=== PATIENT | female | born 1965 | race Caucasian/White ===

== ENCOUNTER → 2016-09-26 | Outpatient (CLI) | payer BC, OTHER ==
[2016-09-26 13:16] LABS: BASO % 0.2 %; BASO ABS # 0.02 K/uL (0-0.2); COMPLETE YES; EOS % 1.3 %; HEMATOCRIT 49.3 % (37-47); IG% 0.5 %; LYMPH % 34.1 %; LYMPH ABS # 4.27 K/uL (1.2-3.4); MEAN CELL VOLUME 89.2 fL (80-100); MEAN CORPUSCULAR HEMOGLOBIN 28.6 pg (25-34); MEAN PLATELET VOLUME 11.3 fL (7.4-10.4); MONO % 5.5 %; NEUT % 58.4 %; PLATELET COUNT 243 K/uL (130-400); RED BLOOD COUNT 5.53 M/uL (4.2-5.4); WHITE BLOOD COUNT 12.54 K/uL (4.8-10.8)
[2016-09-26 13:46] LABS: ESTIMATED AVERAGE GLUCOSE 246 mg/dl; HA1C FLAG Normal (Normal)
[2016-09-26 14:00] LABS: RATIO 68.2 mcg/mg (0-30.0)
[2016-09-26 15:44] LABS: ALT/SGPT 41 U/L (12-78); AST/SGOT 13 U/L (15-37); BLOOD UREA NITROGEN 14 mg/dl (7-18); CALCIUM 9.3 mg/dl (8.5-10.1); CARBON DIOXIDE 31 mmol/L (21-32); CHLORIDE 98 mmol/L (98-107); CHOLESTEROL 145 mg/dl (0-200); CREATININE 0.75 mg/dl (0.60-1.20); GLUCOSE 303 mg/dl (70-99); POTASSIUM 3.9 mmol/L (3.5-5.1); SODIUM 136 mmol/L (136-145)
[2016-09-26 15:48] LABS: ALKALINE PHOSPHATASE 73 U/L (45-117); CHOLESTEROL/HDL RATIO 3.6; HDL CHOLESTEROL 40 mg/dl; LDL CHOLESTEROL CALCULATED 80 mg/dl; TRIGLYCERIDES 126 mg/dl (0-150); VERY LOW DENSITY LIPOPROT CALC 25 mg/dl
[2016-09-26 15:57] LABS: BETA-HYDROXYBUTYRATE 1.33 mg/dL (0.2-2.81)
== END | disposition home or self-care (01) ==
LOC: C.LABMFLN 15:20
PROVIDERS: ATTEND Physician Assistant
DX: E78.5 Hyperlipidemia, unspecified (principal); I10 Essential (primary) hypertension; E11.9 Type 2 diabetes mellitus without complications; Z12.31 Encounter for screening mammogram for malignant neoplasm of breast

== ENCOUNTER → 2017-01-27 | Outpatient (CLI) | payer OTHER ==
[2017-01-27 13:33] LABS: ESTIMATED AVERAGE GLUCOSE 189 mg/dl; HA1C FLAG Normal (Normal)
[2017-01-27 14:02] LABS: ALKALINE PHOSPHATASE 77 U/L (45-117); ALT/SGPT 25 U/L (12-78); AST/SGOT 12 U/L (15-37); BLOOD UREA NITROGEN 10 mg/dl (7-18); BUN/CREATININE RATIO 15.7 (10-20); CALCIUM 9.2 mg/dl (8.5-10.1); CARBON DIOXIDE 28 mmol/L (21-32); CHLORIDE 100 mmol/L (98-107); CREATININE 0.65 mg/dl (0.60-1.20); GLUCOSE 214 mg/dl (70-99); POTASSIUM 3.7 mmol/L (3.5-5.1); SODIUM 135 mmol/L (136-145)
[2017-01-27 14:04] LABS: ALB/GLOB RATIO 0.8 (0.9-2)
[2017-01-27 14:09] LABS: RATIO 146.8 mcg/mg (0-30.0)
== END | disposition home or self-care (01) ==
LOC: C.LABMFLN 08:31
PROVIDERS: ATTEND Physician Assistant
DX: E78.5 Hyperlipidemia, unspecified (principal); I10 Essential (primary) hypertension; E11.9 Type 2 diabetes mellitus without complications

== ENCOUNTER → 2017-03-13 | Outpatient (CLI) | payer OTHER ==
[2017-03-13 18:33] LABS: ALT/SGPT 60 U/L (12-78); AMYLASE 9 U/L (25-115); AST/SGOT 44 U/L (15-37); BLOOD UREA NITROGEN 12 mg/dl (7-18); BUN/CREATININE RATIO 16.3 (10-20); CALCIUM 8.9 mg/dl (8.5-10.1); CARBON DIOXIDE 28 mmol/L (21-32); CHLORIDE 95 mmol/L (98-107); CREATININE 0.73 mg/dl (0.60-1.20); GLUCOSE 148 mg/dl (70-99); POTASSIUM 3.1 mmol/L (3.5-5.1); SODIUM 131 mmol/L (136-145)
[2017-03-13 18:37] LABS: ALB/GLOB RATIO 0.8 (0.9-2); ALKALINE PHOSPHATASE 68 U/L (45-117); RHEUMATOID FACTOR < 10.0 U/mL (0-15)
[2017-03-13 18:40] LABS: HEMATOCRIT 42.5 % (37-47); MEAN CORPUSCULAR HEMOGLOBIN 28.9 pg (25-34); MEAN CORPUSCULAR HGB CONC 34.4 g/dl (32-36); MEAN PLATELET VOLUME 10.6 fL (7.4-10.4); PLATELET COUNT 168 K/uL (130-400); RED BLOOD COUNT 5.06 M/uL (4.2-5.4); WHITE BLOOD COUNT 12.12 K/uL (4.8-10.8)
[2017-03-13 19:16] LABS: LYME DISEASE AB IGG NEG (NEG)
[2017-03-13 19:56] LABS: EOSINOPHIL % 1.8 %; LYMPH ABS # 3.79 K/uL (1.2-3.4); LYMPHOCYTE % 31.3 %; NEUTROPHILS % 39.3 %; VARIANT LYM ABS # 2.38 K/uL; VARIANT LYMPHOCYTE % 19.6 %
[2017-03-13 20:01] LABS: LYME DISEASE AB IGM NEG (NEG)
[2017-03-14 14:37] LABS: COMPLETE YES
== END | disposition home or self-care (01) ==
LOC: C.LABMFLN 15:52
PROVIDERS: ATTEND Physician Assistant
DX: R11.2 Nausea with vomiting, unspecified (principal); R19.7 Diarrhea, unspecified; M79.1 Myalgia; R51 Headache; I95.9 Hypotension, unspecified

== ENCOUNTER → 2017-04-10 | Outpatient (CLI) | payer OTHER ==
[2017-04-10 12:59] LABS: BASO % 0.3 %; BASO ABS # 0.03 K/uL (0-0.2); COMPLETE YES; EOS % 0.7 %; HEMATOCRIT 41.8 % (37-47); IG% 0.3 %; LYMPH % 39.2 %; LYMPH ABS # 4.64 K/uL (1.2-3.4); MEAN CELL VOLUME 88.7 fL (80-100); MEAN CORPUSCULAR HEMOGLOBIN 29.5 pg (25-34); MEAN CORPUSCULAR HGB CONC 33.3 g/dl (32-36); MEAN PLATELET VOLUME 9.8 fL (7.4-10.4); MONO % 7.3 %; NEUT % 52.2 %; PLATELET COUNT 175 K/uL (130-400); RED BLOOD COUNT 4.71 M/uL (4.2-5.4); WHITE BLOOD COUNT 11.85 K/uL (4.8-10.8)
== END | disposition home or self-care (01) ==
LOC: C.LABMFLN 07:57
PROVIDERS: ATTEND Physician Assistant
DX: E87.6 Hypokalemia (principal); Z86.2 Personal history of diseases of the blood and blood-forming organs and certain disorders involving the immune mechanism

== ENCOUNTER → 2017-06-05 | Outpatient (CLI) | payer OTHER ==
[2017-06-05 12:48] LABS: HEMOGLOBIN A1C 7.2 % (4.5-5.6)
[2017-06-05 13:05] LABS: ALBUMIN 3.6 gm/dl (3.4-5.0); BLOOD UREA NITROGEN 15 mg/dl (7-18); CALCIUM 9.1 mg/dl (8.5-10.1); CARBON DIOXIDE 29 mmol/L (21-32); CREATININE 0.78 mg/dl (0.60-1.20); GLUCOSE 169 mg/dl (70-99); POTASSIUM 3.6 mmol/L (3.5-5.1); SODIUM 137 mmol/L (136-145)
[2017-06-05 13:16] LABS: ALKALINE PHOSPHATASE 56 U/L (45-117); ALT/SGPT 35 U/L (12-78); AST/SGOT 17 U/L (15-37); CHOLESTEROL 126 mg/dl (0-200); LDL CHOLESTEROL CALCULATED 68 mg/dl; TOTAL PROTEIN 8.1 gm/dl (6.4-8.2)
== END | disposition home or self-care (01) ==
LOC: C.LABMFLN 07:10
PROVIDERS: ATTEND Physician Assistant
DX: E78.5 Hyperlipidemia, unspecified (principal); I10 Essential (primary) hypertension; E11.9 Type 2 diabetes mellitus without complications

== ENCOUNTER → 2017-08-08 | Outpatient (CLI) | payer OTHER ==
[2017-08-08 12:27] LABS: HEMATOCRIT 44.1 % (37-47); HEMOGLOBIN 14.8 g/dL (12.0-16.0); MEAN CORPUSCULAR HEMOGLOBIN 28.5 pg (25-34); MEAN CORPUSCULAR HGB CONC 33.6 g/dl (32-36); MEAN PLATELET VOLUME 10.1 fL (7.4-10.4); PLATELET COUNT 185 K/uL (130-400); RED CELL DISTRIBUTION WIDTH CV 14.5 % (11.5-14.5); RED CELL DISTRIBUTION WIDTH SD 45.1 fL (36.4-46.3)
[2017-08-08 13:00] LABS: HEMOGLOBIN A1C 6.8 % (4.5-5.6)
[2017-08-08 13:41] LABS: ALBUMIN 3.8 gm/dl (3.4-5.0); ALT/SGPT 30 U/L (12-78); AST/SGOT 14 U/L (15-37); BLOOD UREA NITROGEN 19 mg/dl (7-18); CALCIUM 9.1 mg/dl (8.5-10.1); CARBON DIOXIDE 29 mmol/L (21-32); CREATININE 0.77 mg/dl (0.60-1.20); GLUCOSE 175 mg/dl (70-99); POTASSIUM 3.5 mmol/L (3.5-5.1); SODIUM 137 mmol/L (136-145)
[2017-08-08 13:43] LABS: ALKALINE PHOSPHATASE 58 U/L (45-117); TOTAL PROTEIN 8.3 gm/dl (6.4-8.2)
[2017-08-08 13:47] LABS: BASO % 0.2 %; BASO ABS # 0.02 K/uL (0-0.2); EOS % 1.2 %; EOS ABS # 0.14 K/uL (0-0.5); IG# 0.03 K/uL (0.00-0.02); LYMPH % 43.2 %; LYMPH ABS # 5.05 K/uL (1.2-3.4); MONO % 5.1 %; NEUT ABS # 5.86 K/uL (1.4-6.5)
== END | disposition home or self-care (01) ==
LOC: C.LABMFLN 08:11
PROVIDERS: ATTEND Internal Medicine Hematology & Oncology
DX: E78.5 Hyperlipidemia, unspecified (principal); I10 Essential (primary) hypertension; E11.9 Type 2 diabetes mellitus without complications; D72.9 Disorder of white blood cells, unspecified

== ENCOUNTER → 2017-09-04 | Outpatient (CLI) | payer OTHER | END | disposition home or self-care (01) | LOC: C.LABMFLN 08:12 | PROVIDERS: ATTEND Physician Assistant | DX: E55.9 Vitamin D deficiency, unspecified (principal) ==